=== PATIENT | male | born 1990 | race Two or more races ===

== ENCOUNTER 2023-11-11 14:48 | Emergency (ER) | payer MEDICAID ==
[~2023-11-11] VITALS: Ht 162.6 cm; Wt 102.1 kg
[2023-11-11 15:03] VITALS: BP 99/56; TEMP 98.5; O2SAT 96
[2023-11-11] MEDS: IBUPROFEN 400 MG TABLET PO ONE (16:04)
== END 2023-11-11 16:22 | disposition home or self-care (01) ==
LOC: ER 14:58
DX: R07.9 Chest pain, unspecified (principal); F17.200 Nicotine dependence, unspecified, uncomplicated
CPT/HCPCS: 71045-TC